=== PATIENT | female | born 1950 | race Caucasian/White ===

== ENCOUNTER 2017-08-24 13:15 | Emergency (ER) | payer MEDICARE, OTHER ==
[2017-08-24 13:33] VITALS: TEMP 98.8
[2017-08-24] MEDS ORDERED: ONDANSETRON INJ 4 MG/2 ML VIAL IV ONE (13:54)
[2017-08-24] MEDS ORDERED: SODIUM CHLORIDE 0.9% (FLUSH) 10 ML SYG IV PRN (13:54)
[2017-08-24] MEDS ORDERED: ASPIRIN TABLET 325 MG TAB PO ONE (13:54)
--- NOTE | 2017-08-24 14:01 | ED.PDOC ---
History of Present Illness - General Chief Complaint: Neuro Symptoms/Deficits Stated Complaint: unresponsive Time Seen by Provider: 08/24/17 13:54 Source: family Exam Limitations: clinical condition - History of Present Illness Initial Comments: PT PRESENTS TO THE ED AFTER HAVING A SYNCOPAL EVENT AT HOME. ACCORDING TO PATIENTS , SHE WAS SITTING IN A CHAIR AT HOME WHEN SHE SUDDENLY XENIA HER ARMS IN VOMITED AND LOST CONSCIOUSNESS. HER STATES THAT SHE BECAME PALE AND HE THINKS SHE STOPPED BREATHING. HE LAID HER ON THE FLOOR WHERE HE PROCEEDED TO POUND HER CHEST AND MASSAGE HER TRYING TO GET HER TO WAKE UP. HE STATES HE DID NOT CHECK TO SEE IF SHE HAD A PULSE. HE STATES THAT IT TOOK APPROXIMATELY 10-15 MIN FOR HER TO REGAIN CONSCIOUSNESS. HPI AND ROS LIMITED DUE TO PATIENT MENTAL STATUS. Timing/Prior Episodes: single episode today Precipitating Factors: none Context: sitting Loss of Consciousness: prolonged (minutes) Current Symptoms: back to normal, nausea, pale Allergies/Adverse Reactions: Allergies NO KNOWN ALLERGY Allergy (Verified 08/24/17 13:33) Home Medications: Ambulatory Orders Glimepiride 1 mg PO DAILY 08/24/17 LORazepam [Ativan] 0.5 mg PO BID 08/24/17 Levetiracetam [Roweepra] 500 mg PO BID 30 Days #60 tab 08/24/17 Metformin HCl 500 mg PO BID 08/24/17 Temazepam [Restoril] 15 mg PO BEDTIME PRN 08/24/17 Review of Systems - Review of Systems Constitutional: Denies: chills, fever EENTM: Denies: nose congestion, throat swelling Respiratory: States: see HPI. Denies: cough, short of breath Cardiology: States: see HPI, syncope Gastrointestinal/Abdominal: States: see HPI, nausea, vomiting Genitourinary: States: see HPI Musculoskeletal: States: see HPI Skin: States: see HPI Neurological: States: see HPI Endocrine: States: see HPI Hematologic/Lymphatic: States: no symptoms reported Past Medical History (General) - Patient Medical History Hx Stroke: Yes - possibly Hx Dementia: Yes Hx Congestive Heart Failure: No Hx Diabetes: Yes Surgical History: Hysterectomy - Vaccination History Hx Influenza Vaccination: No Hx Pneumococcal Vaccination: - unknown - Social History Hx Tobacco Use: Yes Physical Exam - Physical Exam General Appearance: Alert, Comfortable, Frail, No apparent distress, Well Developed, Well Groomed, Well Hydrated Eyes, Ears, Nose, Throat Exam: PERRL/EOMI Neck: full range of motion, normal inspection Cardiovascular/Respiratory: regular rate, rhythm, no M/R/G, normal breath sounds , no respiratory distress, other - NO CHEST WALL TENDERNESS Gastrointestinal/Abdominal: non tender, soft Extremity: non-tender, normal inspection 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 FINDINGS AND PLAN DISCUSSED WITH AT BEDSIDE. AGREES TO FOLLOW UP WITH PCP NEXT WEEK. - Results/Orders Results/Orders: 08/24/17 13:54 Telemetry .ONCE Sodium Chloride 0.9% (Flush) [Saline Flush Syringe] 10 ml IV PRN PRN EKG Stat Pulse Ox Stat 08/24/17 15:06 Sodium Chloride 0.9% 1000ML [Ns 1000 ml] 1,000 ml IVS ONCE Laboratory Results - last 24 hr 08/24/17 14:12 WBC 6.3 RBC 4.86 Hgb 14.2 Hct 42.3 MCV 87.0 MCH 29.3 MCHC 33.6 RDW 14.7 H Plt Count 177 MPV 8.7 Absolute Neuts (auto) 4.50 Absolute Lymphs (auto) 1.30 Absolute Monos (auto) 0.40 Absolute Eos (auto) 0.10 Absolute Basos (auto) 0.00 Neutrophils % 71.2 Lymphocytes % 20.9 Monocytes % 6.2 Eosinophils % 1.2 Basophils % 0.5 PT 12.2 INR 1.080 PTT (SP) 30.6 Sodium 143 Potassium 3.8 Chloride 105 Carbon Dioxide 26 Anion Gap 15.8 BUN 26 H Creatinine 0.82 BUN/Creatinine Ratio 31.7 H Random Glucose 130 H Serum Osmolality 291.5 Calcium 10.0 Magnesium 1.9 Total Bilirubin 0.7 Direct Bilirubin < 0.1 Indirect Bilirubin 0.6 AST 20 ALT 19 Alkaline Phosphatase 77 Creatine Kinase 79 CK-MB (CK-2) 2.0 CK-MB (CK-2) % Not Reportable Troponin I < 0.02 B-Natriuretic Peptide 111.0 H Serum Total Protein 7.3 Albumin 4.4 - EKG/XRAY/CT EKG: Sinus - @80BPM, NL INTERVALS, NL AXIS, no ST T wave changes - NO OLD EKG FOR COMPARISON. XRAY: chest - NO ACUTE FINDINGS CT: HEAD: NO ACUTE FINDINGS CT Ordered: Yes CT Interpretation Call Back: No - Consult/PCP Time Called: 03:10 Consult/PCP: DR. CANDELARIO LEWIS Consult Reason/Comments: CASE DISCUSSED. PLAN TO START PT ON KEP[facility] DISCUSSED. Departure - Departure Clinical Impression: Observed seizure-like activity Time of Disposition: 15:58 Disposition: Discharge to Home or Self Care Condition: Good Departure Forms: ED Discharge - Pt. Copy, Patient Portal Self Enrollment Instructions: DI for Seizure (Not Epilepsy/Seizure Disorder) Prescriptions: Levetiracetam [Roweepra] 500 mg PO BID 30 Days #60 tab Home Medications: Ambulatory Orders Glimepiride 1 mg PO DAILY 08/24/17 LORazepam [Ativan] 0.5 mg PO BID 08/24/17 Levetiracetam [Roweepra] 500 mg PO BID 30 Days #60 tab 08/24/17 Metformin HCl 500 mg PO BID 08/24/17 Temazepam [Restoril] 15 mg PO BEDTIME PRN 08/24/17
--- NOTE | 2017-08-24 14:08 | RAD ---
EXAM DESCRIPTION: Chest,1 View CLINICAL HISTORY: 67 years Female, SYNCOPE COMPARISON: None. TECHNIQUE: AP portable chest. FINDINGS: Lungs are clear. No consolidation. Heart normal size. IMPRESSION: Normal. Electronically signed by: Clint Hale MD 08/24/2017 2:07 PM PROPAGATION WORKER
[2017-08-24] MEDS ORDERED: SODIUM CHLORIDE 0.9% 1000ML 1,000 ML IVS ONE (15:06)
--- NOTE | 2017-08-24 15:34 | CT ---
EXAM DESCRIPTION:Head CLINICAL HISTORY:POSSIBLE SEIZURE COMPARISON: None TECHNIQUE: Routine noncontrast brain CT protocol. Imaging was performed utilizing automated exposure control for dose reduction. FINDINGS: Suboptimal image quality due to motion artifacts. No intra-axial mass, hemorrhage, nor midline shift identified in brain. [place]-white delineation is maintained in both cerebral and cerebellar hemispheres. Ventricles are midline in position and diffusely prominent in caliber, with proportional widening of overlying cortical sulci. Basal cisterns and fissures are unremarkably patent. Cranium and skull base are intact without focal injury. No scalp abnormality is identified. Orbits are unremarkable in appearance bilaterally. Visualized portions of paranasal sinuses, middle ear cavities and mastoid air cells are well aerated IMPRESSION: Suboptimal study. No acute intracranial process nor bony injury. Moderate parenchymal atrophy. 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
[2017-08-24] MEDS ORDERED: levETIRAcetam 250 MG TAB PO ONE (15:53)
[2017-08-24] MEDS ORDERED: ALPRAZolam 0.25 MG TAB PO ONE (16:51)
[2017-08-24 17:15] VITALS: BP 161/77; O2SAT 97
== END 2017-08-24 17:15 | disposition home or self-care (01) ==
LOC: ER 13:15
DX: R56.9 Unspecified convulsions (principal); F03.90 Unspecified dementia, unspecified severity, without behavioral disturbance, psychotic disturbance, mood disturbance, and anxiety; E11.9 Type 2 diabetes mellitus without complications
CPT/HCPCS: 36415; 70450; 71045; 80048; 80076; 82550; 82553; 83880; 84484; 85025; 85610; 85730; 93005; J2405; J7030

== ENCOUNTER 2017-10-29 20:53 | Observation (INO) | payer MEDICARE, OTHER ==
--- NOTE | 2017-10-29 21:40 | ED.PDOC ---
History of Present Illness - General Chief Complaint: Drug or Alcohol Abuse Stated Complaint: ingested chemical substance Time Seen by Provider: 10/29/17 21:33 Source: family Additional Information: 67 YEAR OLD WHITE FEMALE WITH HISTORY OF TYPE 11 DM AND DEMENTIA ACCIDENTALLY INGESTED " SUPER GREEN " HORSE LINIMENT ABOUT 10 OZ AT 6.30 PM SHE VOMITED SEVERAL TIMES SINCE THEN AND SHE IS LETHARGIC NOW WITH NORMAL VITAL SIGNS SHE HAS DEMENTIA SO UNABLE TO GET DIRECT HISTORY FROM HER ACTIVE INGRADIENTS INCLUDE ISOPROPYL ALCOHOL WINTERGREEN AMMONIUM SULFATE DIMETHYL SULFURIDE ASCORBIC ACID POISON CONTROL WAS CONTACTED SUGGEST CHECK ASPIRIN LEVEL AND SYMPTOMATIC TREATMENT SUGGESTED - History of Present Illness Timing/Duration: 1-3 hours Severity: moderate Improving Factors: nothing Worsening Factors: nothing Associated Symptoms: other - VOMITING AND ALTERED MENTAL STATUS Allergies/Adverse Reactions: Allergies NO KNOWN ALLERGY Allergy (Verified 08/24/17 13:33) Home Medications: Ambulatory Orders Glimepiride 1 mg PO DAILY 08/24/17 LORazepam [Ativan] 0.5 mg PO BID 08/24/17 Levetiracetam [Roweepra] 500 mg PO BID 30 Days #60 tab 08/24/17 Metformin HCl 500 mg PO BID 08/24/17 Temazepam [Restoril] 15 mg PO BEDTIME PRN 08/24/17 Review of Systems - Review of Systems Unable to Obtain Due To: dementia - UNABLE TO OBTAIN ROS Past Medical History (General) - Patient Medical History Hx Stroke: Yes - possibly Hx Dementia: Yes Hx Congestive Heart Failure: No Hx Diabetes: Yes - Vaccination History Hx Influenza Vaccination: No Hx Pneumococcal Vaccination: - unknown - Social History Hx Tobacco Use: Yes - Female History Patient is a Female of Child Bearing Age (10 -59 yrs old): No Family Medical History - Family History Mother Family History: Unknown Living Status: Unknown Physical Exam - Physical Exam General Appearance: Lethargic Eye Exam: bilateral normal Ears, Nose, Throat: hearing grossly normal, normal ENT inspection, normal pharynx Neck: non-tender, full range of motion Respiratory: chest non-tender, lungs clear, normal breath sounds, no respiratory distress, no accessory muscle use Cardiovascular/Chest: normal peripheral pulses, regular rate, rhythm, no edema, no gallop, no JVD Peripheral Pulses: radial,right: 2+, radial,left: 2+, femoral,right: 2+, femoral ,left: 2+ Gastrointestinal/Abdominal: normal bowel sounds, non tender, soft, no organomegaly, no pulsatile mass Extremity: normal range of motion, non-tender, normal inspection Neurologic: other - ALTERED MENTAL STATUS UNABLE TO PERFORM NEURO EXAM Progress - Results/Orders Results/Orders: Laboratory Tests 10/29/17 10/29/17 10/30/17 21:42 21:42 00:40 WBC 7.9 RBC 4.15 L Hgb 12.4 Hct 36.7 MCV 88.4 MCH 29.8 MCHC 33.8 RDW 14.2 Plt Count 165 MPV 9.3 Absolute Neuts (auto) 5.20 Absolute Lymphs (auto) 2.10 Absolute Monos (auto) 0.40 Absolute Eos (auto) 0.10 Absolute Basos (auto) 0.10 Neutrophils % 66.2 Lymphocytes % 26.6 Monocytes % 4.9 Eosinophils % 1.6 Basophils % 0.7 pCO2 pO2 HCO3 ABG pH ABG O2 Saturation ABG Base Excess ABG Deoxyhemoglobin Oxyhemoglobin % Carboxyhemoglobin % Methemoglobin % Sat Calc Total Hemoglobin Sodium 140 Potassium 3.9 Chloride 108 Carbon Dioxide 25 Anion Gap 10.9 L BUN 32 H Creatinine 0.97 BUN/Creatinine Ratio 33.0 H Random Glucose 145 H Serum Osmolality 288.9 Calcium 9.0 Total Bilirubin 0.6 AST 25 ALT 24 Alkaline Phosphatase 82 Serum Total Protein 6.9 Albumin 4.1 Globulin 2.8 Albumin/Globulin Ratio 1.5 Salicylates < 4.0 < 4.0 10/30/17 01:52 WBC RBC Hgb Hct MCV MCH MCHC RDW Plt Count MPV Absolute Neuts (auto) Absolute Lymphs (auto) Absolute Monos (auto) Absolute Eos (auto) Absolute Basos (auto) Neutrophils % Lymphocytes % Monocytes % Eosinophils % Basophils % pCO2 44 pO2 85 HCO3 22.7 ABG pH 7.330 L ABG O2 Saturation 97.9 ABG Base Excess -2.6 ABG Deoxyhemoglobin 2.0 Oxyhemoglobin % 96.5 Carboxyhemoglobin % 0.1 L Methemoglobin % Sat 1.4 Calc Total Hemoglobin 11.7 L Sodium Potassium Chloride Carbon Dioxide Anion Gap BUN Creatinine BUN/Creatinine Ratio Random Glucose Serum Osmolality Calcium Total Bilirubin AST ALT Alkaline Phosphatase Serum Total Protein Albumin Globulin Albumin/Globulin Ratio Salicylates DISCUSSED WITH DREAD SAMSON TO PLACE HER IN OBSERVATION SHE IS STILL LETHARGIC Departure - Departure Clinical Impression: Accidental ingestion of toxic substance, Diabetes mellitus, Alzheimer disease Time of Disposition: 02:04 Disposition: Admit Patient Condition: Good Departure Forms: ED Discharge - Pt. Copy, Patient Portal Self Enrollment Instructions: DI for Drug Overdose in Adults Diet: resume usual diet Activity: increase activity as tolerated Referrals: CANDELARIO LEWIS [Primary Care Provider] - 1-2 Weeks Home Medications: Ambulatory Orders Glimepiride 1 mg PO DAILY 08/24/17 LORazepam [Ativan] 0.5 mg PO BID 08/24/17 Levetiracetam [Roweepra] 500 mg PO BID 30 Days #60 tab 08/24/17 Metformin HCl 500 mg PO BID 08/24/17 Temazepam [Restoril] 15 mg PO BEDTIME PRN 08/24/17
[2017-10-29] MEDS ORDERED: SODIUM CHLORIDE 0.9% 1000ML 1,000 ML IVS ONE (21:43)
--- NOTE | 2017-10-29 22:05 | RAD ---
EXAM DESCRIPTION: Chest,1 View CLINICAL HISTORY: R/O ASPIRATION COMPARISON: 08/24/2017 FINDINGS: Cardiac silhouette is within normal limits. There is no focal parenchymal or pleural disease. Visualized osseous structures are within normal limits. IMPRESSION: No evidence of acute cardiopulmonary disease. Electronically signed by: Harsh Ritter 10/29/2017 10:04 PM CDT
[2017-10-30] MEDS ORDERED: SODIUM CHLORIDE 0.9% 1000ML 1,000 ML IVS ONE (01:42)
[2017-10-30] MEDS ORDERED: SODIUM CHLORIDE 0.9% (FLUSH) 10 ML SYG IV PRN (02:36)
[2017-10-30] MEDS ORDERED: GLUCAGON INJ 1 MG VIAL SUBCU PRN (02:38)
[2017-10-30] MEDS ORDERED: DEXTROSE 50% 25 GM/50 ML SYG IV PRN (02:38)
[2017-10-30] MEDS ORDERED: KCL 20MEQ/D5 1/2NS 1,000 ML IVS PRN (02:39)
[2017-10-30] MEDS ORDERED: IV SET AND CAP CHANGE INJ INJ SCH (03:00)
[2017-10-30] MEDS ORDERED: INSULIN LISPRO 100 UNITS/ML PEN SUBCU SCH (07:00)
[2017-10-30 10:25] VITALS: BP 130/62; TEMP 98; O2SAT 100
--- NOTE | 2017-10-31 08:52 | SSS ---
SUPERVISING PHYSICIAN: Fito Goodson MD DATE OF ADMISSION: 10/30/17 DATE OF DISCHARGE: 10/30/17 DISCHARGE DIAGNOSIS: 1. Acute poisoning secondary to accidental ingestion of Super Green Horse Liniment. 2. Nausea and vomiting secondary to #1 with the patient having no adverse side effects at discharge with normal salicylate levels. 3. Alzheimer's with advanced dementia. 4. Diabetes mellitus on oral therapy. REASON FOR HOSPITALIZATION: Ms. Flores is a 67-year-old, female patient with advanced dementia that lives with her . She accidentally ingested some Super Green Horse Liniment around 6:30 PM on 10/29/17, shortly after which she vomited several times and then became apparently lethargic and was brought to the Emergency Room by her . Again, the patient has severe dementia and was unable to provide any history. Poison Control was notified and active ingredients are identified as being isopropyl alcohol, wintergreen, ammonium sulfate, dimethyl sulfide, and ascorbic acid. Poison Control suggested that we monitor aspirin levels and treat symptomatically. The patient's vital signs were stable in the Emergency Room. Her laboratory studies were essentially unremarkable, just elevated BUN was noted at 32 and blood gas showed a pH of 7.33 but normal PCO2, PO2 and bicarb levels. Her initial toxicology screen included salicylate which showed less than 4.0. The patient was placed in observation status for further monitoring of salicylate levels and close neurological monitoring. PAST MEDICAL HISTORY: 1. Dementia. 2. Hypertension. 3. History of seizures. 4. Diabetes mellitus on oral therapy. PAST SURGICAL HISTORY: No major surgeries listed. HOME MEDICATIONS: 1. Levetiracetam 500 mg b.i.d. 2. Ativan 0.5 mg b.i.d. 3. Glimepiride 1 mg daily. 4. Metformin 500 mg b.i.d. 5. Restoril 15 mg at bedtime as needed. ALLERGIES: NO KNOWN DRUG ALLERGIES. FAMILY HISTORY: Noncontributory. SOCIAL HISTORY: The patient is disabled. She lives with her at [facility]. She did smoke but quit well over 20 years previously, does not drink alcohol and does not use illicit drugs. REVIEW OF SYSTEMS: Unable to fully obtain secondary to the patient's mental status, but per : CONSTITUTIONAL: The patient was not having any chills or fevers. HEENT: No noted headaches, nasal congestion, earaches, sore throats. RESPIRATORY: No reported shortness of breath, wheezing, coughing. CARDIOVASCULAR: No reported chest pain, palpitations or syncopal episodes. GASTROINTESTINAL: No reported abdominal pains, but she did have nausea as noted in history of present illness post ingestion of aforementioned substance. No diarrhea. GENITOURINARY: The patient is incontinent. NEUROLOGIC: The patient has advanced dementia, but no reported seizures recently. Ataxia. She is nonverbal, which is her baseline status. PHYSICAL EXAMINATION: VITAL SIGNS: On initial admission, hemodynamically stable with temperature 98.8. Pulse 50. Blood pressure 129/69. Respirations 16. Saturation 98% on nasal cannula at 2 liters. On discharge, vital signs showed temperature 98.8. Pulse 76. Blood pressure 130/62. Respirations 16. Saturation 100% on room air. Weight 59.8 kg. GENERAL: Initially on exam, the patient was in the position and difficult to get to wake up and cooperate, but with family's assistance, the patient was able to sit up to the bedside chair and according to the family was back to her baseline mental status, was ambulatory and alert, but nonverbal. ASSESSMENT: 1. Acute poisoning secondary to accidental ingestion of Super Green Horse Liniment. 2. Nausea and vomiting secondary to #1 with the patient having no adverse side effects at discharge with normal salicylate levels. 3. Alzheimer's with advanced dementia. 4. Diabetes mellitus on oral therapy. HOSPITAL COURSE: The patient was seen in the Emergency Room initially and was found to be hemodynamically stable as noted with her blood pressures as above. Poison Control was called on the patient's admission and advised that the patient be observed closely and salicylate levels monitored and treated symptomatically. The patient remained in the Emergency Room for several hours and had two salicylate levels drawn which were all within normal limits. I was called for admission at which time the patient was placed in observation status and examination on the morning of discharge, the patient was initially asleep and hard to arouse, however, with the assistance of the family the patient was up to the bedside chair shortly after, interacting and actually ambulating from the room to the mckenna and back to her baseline mental status. However, she was nonverbal, which is her normal baseline. She was on telemetry with no abnormal rhythms. She had no additional episodes of vomiting and had remained stable hemodynamically and final salicylate prior to discharge again was within normal limits. The patient was back to her baseline mental status per family who was at bedside and prior to discharge was able to eat breakfast and was felt to be clinically stable to be discharged home to followup with primary care provider. PLAN: The patient was discharged on 10/30/17 to the care of her who is her primary caregiver. He was instructed to resume her home medications as previous to hospitalization and to call Lexie Linares, their primary care provider to have close followup within the next week or so if not sooner. He was again encouraged and instructed to take precautions to secure all hazardous materials, liquids, and substances to prevent any accidental ingestion in the future. He was told to bring her back to the hospital or the Emergency Room if she had any concerning symptoms or call the primary care provider. Diet at discharge was diabetic diet as tolerated. Activities to increase as tolerated. All medications were resumed. No new medications were prescribed. Condition at discharge was stable and improved. #[id number] [facility]
== END 2017-10-30 11:27 | disposition home or self-care (01) ==
LOC: ER 20:53 → MS 10-30 02:21
PROVIDERS: ADMIT Nurse Practitioner Family; ATTEND Nurse Practitioner Family
DX: T49.3X1A Poisoning by emollients, demulcents and protectants, accidental (unintentional), initial encounter (principal); R11.2 Nausea with vomiting, unspecified; G30.9 Alzheimer's disease, unspecified; F02.80 Dementia in other diseases classified elsewhere, unspecified severity, without behavioral disturbance, psychotic disturbance, mood disturbance, and anxiety; E11.9 Type 2 diabetes mellitus without complications; I10 Essential (primary) hypertension; Z79.84 Long term (current) use of oral hypoglycemic drugs; Z79.899 Other long term (current) drug therapy; Y92.009 Unspecified place in unspecified non-institutional (private) residence as the place of occurrence of the external cause
CPT/HCPCS: 96372; J7030 ×2; J1815; 80053 ×2; 82948 ×2; 36415 ×3; 85025; 83735; 80329 ×3; 36416 ×2; 71045; 94760 ×2; 99285; 93005; G0378; 96360